=== PATIENT | female | born 1945 | race Caucasian/White ===

== ENCOUNTER 2020-12-27 12:45 | Emergency (ER) | payer MEDICAID, OTHER ==
[~2020-12-27] VITALS: Ht 162.6 cm; Wt 71.7 kg
[2020-12-27 12:55] VITALS: BP 142/88
[2020-12-27] MEDS ORDERED: SYN.1 PO (13:14)
[2020-12-27] MEDS ORDERED: AMLO5TAB PO (13:14)
[2020-12-27 13:20] VITALS: BP 142/88
== END 2020-12-27 13:19 | disposition home or self-care (01) ==
LOC: MED 12:45
DX: E07.9 Disorder of thyroid, unspecified (principal); I10 Essential (primary) hypertension; Z76.0 Encounter for issue of repeat prescription
CPT/HCPCS: 99281

== ENCOUNTER 2021-01-13 12:37 | Emergency (ER) | payer OTHER, MEDICAID ==
[~2021-01-13] VITALS: Ht 165.1 cm; Wt 63.5 kg
[~2021-01-13 12:37] MED LIST: AMLO5TAB PO; SYN.1 PO
[2021-01-13 12:42] VITALS: BP 115/69
[2021-01-13 13:27] VITALS: BP 133/81
== END 2021-01-13 13:27 | disposition home or self-care (01) ==
LOC: MED 12:37
DX: R23.3 Spontaneous ecchymoses (principal); I10 Essential (primary) hypertension; E07.9 Disorder of thyroid, unspecified; Z00.00 Encounter for general adult medical examination without abnormal findings
CPT/HCPCS: 99281